=== PATIENT | female | born 1995 | race Caucasian/White ===

== ENCOUNTER 2017-04-09 22:11 | Observation (INO) | payer BC ==
[2017-04-10] MEDS ORDERED: PRENATAL TABLE1 EAC3 PO (04:42)
[2017-08-02] MEDS ORDERED: IBUPROFEN800 M1 PO (11:18)
[2017-08-02] MEDS ORDERED: NORCO 5-325 TA1 EACH PO (11:18)
== END 2017-04-10 02:05 ==
LOC: LDR 22:11
PROVIDERS: ADMIT Obstetrics & Gynecology
DX: O46.92 Antepartum hemorrhage, unspecified, second trimester (principal); Z3A.23 23 weeks gestation of pregnancy; Z88.8 Allergy status to other drugs, medicaments and biological substances

== ENCOUNTER 2017-07-22 17:13 | Observation (INO) | payer OTHER ==
[~2017-07-22] VITALS: Ht 167.6 cm; Wt 128.2 kg
[~2017-07-22 17:13] MED LIST: PRENATAL TABLE1 EAC3 PO
[2017-07-22] MEDS ORDERED: TYLENOL EXTRA500 M1 PO (18:42)
[2017-07-22] MEDS ORDERED: ZANTAC150 M1 PO (18:42)
== END 2017-07-22 19:45 ==
LOC: LDR 17:13
PROVIDERS: ADMIT Obstetrics & Gynecology
DX: O47.1 False labor at or after 37 completed weeks of gestation (principal); Z3A.38 38 weeks gestation of pregnancy

== ENCOUNTER 2017-07-24 17:45 | Observation (INO) | payer OTHER ==
[~2017-07-24] VITALS: Ht 167.6 cm; Wt 127.4 kg
[~2017-07-24 17:45] MED LIST changes: +TYLENOL EXTRA500 M1 PO; +ZANTAC150 M1 PO
[2017-07-24] MEDS ORDERED: TUMS200 MG PO (19:25)
== END 2017-07-24 22:00 ==
LOC: LDR 17:45
PROVIDERS: ADMIT Obstetrics & Gynecology
DX: Z03.71 Encounter for suspected problem with amniotic cavity and membrane ruled out (principal); Z3A.39 39 weeks gestation of pregnancy